=== PATIENT | female | born 1965 | race Caucasian/White ===

== ENCOUNTER 2023-11-13 07:10 | Observation (INO) ==
--- NOTE | 2023-10-23 10:00 | PAT Medication Instructions ---
Medication Instructions Date of Service October 23, 2023 Home Medications ascorbic acid (vitamin C) 500 mg tablet (Vitamin C) 500 mg PO DAILY calcium 600 mg capsule 1,200 mg PO DAILY cholecalciferol (vitamin D3) 25 mcg (1,000 unit) tablet (Vitamin D3) 25 mcg PO DAILY magnesium 250 mg tablet 250 mg PO HS multivitamin 1 cap PO DAILY sertraline 100 mg tablet (Zoloft) 100 mg PO QPM DO NOT take the morning of surgery ascorbic acid (vitamin C) 500 mg tablet (Vitamin C) 500 mg PO DAILY calcium 600 mg capsule 1,200 mg PO DAILY cholecalciferol (vitamin D3) 25 mcg (1,000 unit) tablet (Vitamin D3) 25 mcg PO DAILY magnesium 250 mg tablet 250 mg PO HS multivitamin 1 cap PO DAILY Take evening before surgery magnesium 250 mg tablet 250 mg PO HS sertraline 100 mg tablet (Zoloft) 100 mg PO QPM Other Notes If you have any questions please call us at [phone] or [phone] or [phone] or [phone]
--- NOTE | 2023-11-04 14:15 | Anesthesiology Consultation ---
Date of Service November 04, 2023 Assessment & Plan (1) Encounter for pre-operative examination: - Infectious disease screening: Per assessment on 11/04/23: Had Covid positive exposure 10/11/23 (home test 10/13/23 negative). No subsequent known infectious disease contacts or current infectious disease symptoms. No noted recent Covid positive test result. - Outpatient joint pathway: Per OR booking comments, plan for outpatient joint program. Patient seen at [facility] 11/04/23. Patient motivated. Strong post-op home support. Patient is an acceptable candidate to proceed as planned outpatient joint pathway pending perioperative course. Surgeon's office arranging post-op home management. - Patient acceptable risk for surgery pending surgeon-ordered PCP clearance ([facility], appt 11/07). Chart Review Chart Review: Patient seen in Pre Admission Testing Teaching & Discussion Pre-Anesthesia Teaching/Discussion Notes: Instructed NPO after midnight before surgery,except medications with 15 cc of water. Medication instructions provided according to the [facility] guidelines. History Surgery Operation Date: 11/13/23 10:50 Proposed Procedures p OP: Right Total Knee Arthroplasty - Lukas Main MD Height/Weight Height: 5 ft 3.5 in Weight: 66.1 kg Allergies Allergy/AdvReac Type Severity Reaction Status Date / Time Penicillins Allergy Unknown rash Verified 10/22/23 13:40 Medications Home Medications Medication Instructions Recorded Confirmed Last Taken ascorbic acid (vitamin C) 500 mg 500 mg PO DAILY 10/22/23 10/22/23 Unknown tablet (Vitamin C) calcium 600 mg capsule 1,200 mg PO DAILY 10/22/23 10/22/23 Unknown cholecalciferol (vitamin D3) 25 25 mcg PO DAILY 10/22/23 10/22/23 Unknown mcg (1,000 unit) tablet (Vitamin D3) magnesium 250 mg tablet 250 mg PO HS 10/22/23 10/22/23 Unknown multivitamin 1 cap PO DAILY 10/22/23 10/22/23 Unknown sertraline 100 mg tablet (Zoloft) 100 mg PO QPM 10/22/23 10/22/23 Unknown Past Medical History Medical History Acid reflux Mild, occasional History of depression Anxiety Exercise / Class Metabolic Activity II 4-5 Yardwork/Stairs/Walk up hill (one FS (no CP, no SOB)) Past Surgical History Surgical History Nausea and vomiting after administration of anesthetic agent nausea after general anesthesia History of surgery left high tibial osteotomy History of shoulder surgery right History of appendectomy History of colonoscopy Past Anesthesia History No Hx of Anesthesia Complications and No Family Hx of Anesthesia Complications History of PONV History of PONV (nausea after general anesthesia) and Hx of Motion Sickness (Situational) Social History Smoking Status: Never smoker Do You Dip or Chew Tobacco: No Alcohol type: beer, wine and hard liquor alcohol intake frequency: a few times a month (6x per month) Hx Substance Use: No substance use type: does not use Review of Systems Patient denies chest pain, shortness of breath, dyspnea on exertion, fever, chills, cough, wheezing, palpitations. Physical Exam Vital Signs VITALS BP 103/61 P 65 TEMP 98.8 SP02 95%RA RESP 16 PHYSICAL Full cervical extension range of motion. Full TMJ range of motion. TMD 3 finger breaths Mallampati Score 2 Dentition: intact Lungs: clear throughout to auscultation Cardiac: regular rate and rhythm, no murmurs noted Spine: normal Carotid arteries: negative bruit Extremities: no LE edema Lab Results Anesthesia Preop Results Results Anesthesia Widget: WBC 6.40 K/ul (4.8-10.8) 11/04/23 Hgb 12.8 g/dl (12.0-16.0) 11/04/23 Hct 38.0 % (37.0-47.0) 11/04/23 Plt 278 K/uL (130-400) 11/04/23 Na 142 mmol/L (136-145) 11/04/23 K 3.8 mmol/L (3.5-5.1) 11/04/23 Cl 108 mmol/L (98-107) H 11/04/23 CO2 27 mmol/L (21-32) 11/04/23 BUN 18 mg/dl (6-23) 11/04/23 Creat 0.59 mg/dl (0.6-1.2) L 11/04/23 Glucose Level 81 mg/dl (70-99(Fasting)) 11/04/23 PT 10.5 Seconds (9.0-12.0) 11/04/23 PTT 25 Seconds (21-31) 11/04/23 INR 1.0 (0.9-1.1) 11/04/23 Urine Color Yellow 11/04/23 Urine Appearance Clear (Clear) 11/04/23 Urine pH 5.0 (4.5-7.5) 11/04/23 Urine Specific Pep 1.023 (1.000-1.030) 11/04/23 Urine Protein Negative (Negative) 11/04/23 Urine Glucose (UA) Negative (Negative) 11/04/23 Urine Ketones Trace (Negative) H 11/04/23 Urine Blood Negative (Negative) 11/04/23 Urine Nitrite Negative (Negative) 11/04/23 Urine Bilirubin Negative (Negative) 11/04/23 Urine Urobilinogen Negative (Negative) 11/04/23 Urine Leukocyte Esterase Negative (Negative) 11/04/23 Blood Type O Positive 11/04/23 Antibody Screen NEGATIVE 11/04/23 Testing Electrocardiogram Date: 11/04/23 NSR at 62bpm. "Normal ECG"
--- NOTE | 2023-11-05 15:12 | History & Physical Report ---
Date of Service November 05, 2023 Assessment & Plan (1) Osteoarthritis of right knee: Plan: PRE-OP Diagnosis: Right knee osteoarthritis Planned Procedure: Right total knee arthroplasty (outpatient) Plan: Patient is scheduled to undergo this procedure at the [facility] following the outpatient joint pathway on , November 13, [address] Main. Risks and complications of the procedure such as: Infection, bleeding, pain, scarring, nerve blood vessel damage, weakness, wound problems, stiffness, incomplete relief of symptoms, hardware failure, hardware loosening, wear, fracture, tendon or ligament injury, blood clots, embolism, heart attack, stroke and were explained to the patient and her visit today. Informed consent form procedure was obtained. Patient also understands risks of proceeding with surgical invention during the COVID-19 pandemic. Currently she is asymptomatic and has not been in contact with anyone positive for the virus recently. Patient states she has a preop medical clearance appointment scheduled with her primary care provider Dr. Ramey on November 07 at noon. Patient states she is scheduled to meet anesthesia later this afternoon. While there she will obtain a CBC with differential, complete metabolic panel, PT/INR, blood type and screen, urinalysis, urine culture and sensitivity, EKG, and a nasal culture for MRSA. During today's visit we reviewed the total knee packet. I answered all questions that the patient had in regards to her surgery. I provided her with paperwork to obtain a handicap placard for her vehicle. Patient will need a walker, raised toilet seat and shower chair prior to surgery. I discussed antibiotic use following joint replacement surgery before dental procedures. We talked about joint venture classes offered by [facility] that are done via [employer]. We discussed the outpatient joint pathway and how it works. During today's visit the PDMP was checked and no red flags were raised that would prevent us from prescribing the patient an opioid analgesic for postoperative pain control. Prescriptions for oxycodone, diclofenac sodium, Zofran and cephalexin were sent to the patient's pharmacy for to use following surgery. I also discussed with the patient that she will be on a baby aspirin twice daily for the first 30 days postoperatively for blood clot prevention. Patient plans on doing in-home physical therapy for the first 2 weeks postoperatively. I will provide this order to our nurse liability claims manager and have this service set up. Patient states that she is most likely going to do outpatient physical therapy at [facility]. She is scheduled to see me for 2-week postoperative follow-up on November 26. If she has questions or concerns that should arise prior to her surgery, she will contact the clinic. This chart was completed utilizing [employer] voice recognition software. Grammatical errors, random word insertions, pronoun errors, and in complete sentences are an occasional consequence of the system. Any questions or concerns about the content, text, or information contained within the body of this dictation should be addressed directly to the physician for clarification. History of Present Illness Chief Complaint: Chief Complaint: Right knee pain Primary Care Provider: Jaden Meyers DO History of Present Illness (including history relevant to procedure): This 58-year-old female presents to the clinic today for her preoperative history and physical. Patient complains of a 5-year history of medial sided knee pain that is failed conservative management with corticosteroid injections, viscosupplementation injections, the use of oral nonsteroidal agents and extensive physical therapy. Patient states that over the past 6 months her pain has increased with occasional swelling, locking, clicking and radiation of the pain to the posterior medial aspect of the knee. It is now starting to affect things that she likes that he will our regular basis and makes it difficult to navigate stairs or walk up or down hill. She is elected proceed with surgical intervention at this time. Review Of Systems: A 12 point review of systems is performed is unremarkable except for those things stated in the HPI and past medical history. Past Medical History: Problems: OA (osteoarthritis) of knee History of operative procedure on shoulder Impingement syndrome of shoulder region Pain in upper limb Procedure History Procedure Procedure Date Comments Arthroscopy of shoulder with biceps tenodesis Shoulder repair 2013 Osteotomy of tibia 2012 Appendectomy 1980 Allergies and Sensitivities: penicillins Current Home Meds: (Last Updated 11/04 13:30) ascorbic acid (Vitamin C) calcium citrate PO bid cephalexin (cephalexin 500 mg oral capsule) 500 mg PO tid Post op infection prophylaxis diclofenac (diclofenac sodium 75 mg oral delayed release tablet) 75 mg PO bid PRN: as needed for pain with food magnesium aspartate ondansetron (Zofran 4 mg oral tablet) 4 mg PO q8h Post op nausea/vomiting oxyCODONE (oxyCODONE 5 mg oral tablet) 5 mg PO q4h PRN: as needed for pain post op pain controlOngoing Tx sertraline (Zoloft 100 mg oral tablet) 100 mg PO Daily sodium hyaluronate (Euflexxa 10 mg/mL intra-articular solution) 20 mg intra- articular q7days mail to dr kramer Initial Wt: 11/04 65.0 kg 143 lb Allergies Allergy/AdvReac Type Severity Reaction Status Date / Time Penicillins Allergy Unknown rash Verified 10/22/23 13:40 Home Medications Medication Instructions Recorded Confirmed Type ascorbic acid (vitamin C) 500 mg 500 mg PO DAILY 10/22/23 10/22/23 History tablet (Vitamin C) calcium 600 mg capsule 1,200 mg PO DAILY 10/22/23 10/22/23 History cholecalciferol (vitamin D3) 25 25 mcg PO DAILY 10/22/23 10/22/23 History mcg (1,000 unit) tablet (Vitamin D3) magnesium 250 mg tablet 250 mg PO HS 10/22/23 10/22/23 History multivitamin 1 cap PO DAILY 10/22/23 10/22/23 History sertraline 100 mg tablet (Zoloft) 100 mg PO QPM 10/22/23 10/22/23 History Past Med/Surg History Medical History Acid reflux Mild, occasional History of depression Anxiety Surgical History Nausea and vomiting after administration of anesthetic agent nausea after general anesthesia History of surgery left high tibial osteotomy History of shoulder surgery right History of appendectomy History of colonoscopy Social History Smoking Status: Never smoker Second Hand Exposure: No; Do You Dip or Chew Tobacco: No; Hx Substance Use: No Preferred Language: Albanian Communication Ability: Effective Unit Clerk Required: No Beliefs That Will Affect Care: None Current Living Situation: Spouse and Family Feels Safe at Home: Yes Assistive Devices: None Review of Systems All systems reviewed & are unremarkable except as noted in Subjective Physical Exam Physical Exam: Physical Exam: (relevant to the procedure, including heart and lung evaluation) General: Alert and oriented x 3 with proper grooming and hygiene Eyes: Pupils are equal and reactive to light with accommodation. Extraocular movements intact Throat: Posterior oropharynx is clear with absence of edema, erythema or exudate. Dentition is appropriate Cardiac: Regular rate and rhythm with no murmurs or gallops appreciated Lungs: Clear to auscultation throughout with no wheezing, rales or rhonchi Abdomen: Nonobese, nondistended, nontender with NABS Extremities: Right knee: Range of motion is from 0 degrees of extension to 125 degrees of flexion. Patient experiences medial joint line tenderness with the knee is palpated in the flexed position. She also experiences discomfort with manipulation of her patella. Patient has slight visible valgus malalignment of the knee. She has no significant laxity with varus or valgus stressing. AP drawer sign and Hanh test are negative. Patient is neurovascularly intact in the right lower extremity. Neuro: Cranial nerves II through XII are intact no motor or sensory deficit Skin: Normal in appearance with no open skin areas or discharge Results & Data Diagnostic Findings Studies (relevant to the procedure): X-ray imagin views of the right knee obtained show evidence of left knee high tibial osteotomy that is healed and well-maintained joint space. Right knee shows lateral patellofemoral joint space narrowing with tricompartmental osteophyte formation. Alignment films done in 02/2022 reviewed show Varus mal alignment of the right knee.
[~2023-11-13 07:10] MED LIST: ACETAMINOPHEN 500 MG TAB PO SCH; BUPIVACAINE 0.5 % 5 MG/1 ML PF 10ML VIAL ONE; CeleBREX 200 MG CAP PO SCH; FAMOTIDINE 20 MG TAB PO SCH; LR 500ML BOLUS, THEN 15ML/HR IV SCH; LR 60ML/HR IV SCH; MEPIVACAINE HCL 1.5% 30 ML VIAL ONE; ROPIVACAINE 0.5% 5 MG/ML 30 ML VIAL ONE; ROPIVACAINE 0.5% HCL/PF 150 MG, BUPIVACAINE 0.75% MPF 20 ML, EPINEPHrine 0.15 MG, Ketor... INFIL SCH; ROPIVACAINE 0.5% HCL/PF 246 MG, Ketorolac (*for OR use only*) 30 MG, EPINEPHrine 30MG/3... INFIL SCH; Scopolamine 1 MG TDSY TD SCH; TRANEXAMIC ACID 1,000 MG **IV Intra-op IV SCH; TRANEXAMIC ACID 1,000 MG **IV Pre-op IV SCH; ceFAZolin 2000MG 2,000 MG/15 ML SYR IV SCH; dexAMETHasone**PF** 10 MG/ML VIAL IV SCH; traMADol HCL 50 MG TABLET PO SCH
[2023-11-13] MEDS ORDERED: fentaNYL citrate PF 100 MCG/2 ML VIAL ONE (07:25)
[2023-11-13] MEDS ORDERED: PROPOFOL IV EMULSION 10 MG/ML 20 ML VIAL IV ONE (07:25)
[2023-11-13] MEDS ORDERED: MIDAZOLAM HCL 1 MG/ML 2ML VIAL ONE (07:25)
--- OUTSIDE RECORDS SUMMARY | 2023-11-13 07:56 | External Medical Summary | Summary of Care ---
Author Name Unknown Organization [facility] Address [address] [place] [address] Phone [phone] Care Team Providers Care Windows Support Engineer Name Role Phone Jaden Meyers DO Primary Care Provider [phone] Reason for Visit * Reason Comments pre-op exam Encounter Details Date Type Department Care Team (Latest Contact Info) Description 11/07/2023 12:00 PM EST Office Visit Family Practice [facility] [address] [facility] [place] [address] Evon Verma PA-C [address] [facility] [place] [address] Preoperative general physical examination*; Primary osteoarthritis of one knee, right; Major depressive disorder, recurrent episode, moderate (HCC); Generalized anxiety disorder; Body mass index 26.0-26.9, adult Allergies Active Allergy Reactions Criticality Noted Date Comments Penicillins Rash 08/09/2013 documented as of this encounter (statuses as of 11/07/2023) Medications Medication Sig Dispensed Refills Start Date End Date Status Magnesium 250 MG TabletIndications: takes at night Take 1 Tablet by mouth in the morning. 0 Active vitamin c (ASCORBIC ACID) 500 MG Tablet Take 1 Tablet by mouth in the morning. 0 Active Calcium Carbonate 1250 (500 CA) MG CAPS Take by mouth. 0 Active Melatonin 10 MG Tablet Take 1 Tablet by mouth at bedtime. 0 Active Cephalexin 500 MG Oral Capsule (Keflex) 0 11/04/2023 Active Diclofenac Sodium 75 MG Oral Tablet Delayed Release (Voltaren) 0 11/04/2023 Active Ondansetron HCl 4 MG Oral Tablet (Zofran) TAKE ONE TABLET BY MOUTH EVERY 8 HOURS FOR POST OP NAUSEA/VOMIT ING 0 11/04/2023 Active oxyCODONE HCl 5 MG Oral Tablet (Oxy IR) 0 11/04/2023 Active Sertraline HCl 100 MG Oral Tablet (Zoloft)Indication s:Major depressive disorder, recurrent episode, moderate (HCC),Generalized anxiety disorder TAKE ONE AND ONE-HALF TABLETS ONCE DAILY IN THE MORNING 135 Tablet 1 11/07/2023 Active COVID-19 mRNA Vacc (Moderna) 100 MCG/0.5ML Intramuscular Suspension (Spikevax) 0 10/12/2021 11/07/19 24 Discontinued Sertraline HCl 100 MG Oral Tablet (Zoloft)Indication s:Depression TAKE ONE AND ONE-HALF TABLETS ONCE DAILY IN THE MORNING 135 Tablet 1 10/09/2023 11/07/19 24 Discontinued(Ref ill) documented as of this encounter (statuses as of 11/07/2023) Active Problems Problem Noted Date Diagnosed Date Atypical squamous cells of u ndetermined significance (ASCUS) on Papanicolaou smear of cervix 11/07/2023 Dysfunctional uterine bleeding 11/07/2023 Major depressive disorder, recurrent episode, mo derate 12/08/2020 Generalized anxiety disorder 08/09/2013 documented as of this encounter (statuses as of 11/07/2023) Resolved Problems Problem Noted Date Diagnosed Date Resolved Date Abnormal mammogram 07/24/2017 8 Malaise and fatigue 07/09/2017 07/21/20 18 Rotator cuff tear 08/09/2013 11/07/2023 documented as of this encounter (statuses as of 11/07/2023) Immunizations Name Administration Dates Next Due COVID-19 mRNA, LNP-s, No Pre serve, 2-Dose Series (Moderna) 03/14/2021,02/14/2021 COVID-19, mRNA, LNP-s, PF, B ooster, 100mcg/0.5mg (Moderna) 10/12/2021 PPD 07/21/2018 Seasonal Influenza, PF, 6 M & above, IM , (FluLaval or Fluzone) 09/09/2023,08/18/2021,07/19/2020,08/05,07/21/2018,08/08/2017 Seasonal Influenza, Quadriva lent, No Preserve, IM 08/22/2016 08/22/2017 Seasonal Influenza, Split, I IV3, With Preserve, Inj 07/12/2015,08/06/2014,08/09/2013 TDAP (age 10 and older)(Boostrix) 03/10/2014 Zoster Vaccine Recombinant (Shingrix) 02/09/2020,11/08/2019 documented as of this encounter Social History Tobacco Use Types Packs/Day Years Used Date Smoking Tobacco: Never Smokeless Tobacco: Never Alcohol Use Standard Drinks/Week Comments Yes 0 (1 standard drink = 0.6 oz pur e alcohol) social AUDIT-C Answer Date Recorded Frequency of Alcohol Consumption Not on file 08/05/2019 Average Number of Drinks Not on file 019 Frequency of Binge Drinking Weekly 01/2019 PHQ-2 Answer Date Recorded PHQ Adult Total Score 0 06/19/2022 Hunger Vital Sign Answer Date Recorded Within the past 12 months, y ou worried that your food would run out before you got the money to buy more. Never true 10/28/20 23 Within the past 12 months, t he food you bought just didn't last and you didn't have money to get more. Never true 10/28/2023 Sex and Gender Information Value Date Recorded Sex Assigned at Female 08/04/2022 9:50 PM EDT Gender Identity Female 08/04/2022 9:50 PM EDT Sexual Orientation Straight 08/04/2022 9: 50 PM EDT Job Start Date Occupation Industry Not on file Not on file Not on file documented as of this encounter Last Filed Vital Signs Vital Sign Reading Time Taken Comments Blood Pressure 100/62 11/07/2023 11:58 AM EST Pulse 84 11/07/2023 11:58 AM EST Temperature 36.7 C (98 F) 11/07/2023 11:58 AM EST Respiratory Rate 16 11/07/2023 11:58 AM EST Oxygen Saturation 96% 11/07/2023 11:58 AM EST Inhaled Oxygen Concentration - - Weight 67.2 kg (148 lb 1.3 oz) 11/07/2023 11:58 AM EST Height 159.8 cm (5' 2.91") 11/07/2023 11:[address] Body Mass Index 26.31 11/07/2023 11:58 AM EST documented in this encounter Progress Notes * Evon Verma PA-C - 11/07/2023 12:14 PM EST Images from the original note were not included. Pre-Operative Medical Evaluation Procedure Information Type of Surgery: right knee replacement Referring Physician / Surgeon: Inglewoodjaime Esteban/Dr. Main Date of procedure: 11/13/2022 at [facility] Review of Systems: Constitutional ROS: No change in weight, No weakness, No fatigue, and No fevers, sweats, or chills Eye ROS: No recent significant change in vision, No eye pain, redness, discharge, No diplopia, No h/o cataracts, and No h/o glaucoma Ear ROS: No ear pain, No drainage, No tinnitus or vertigo, and No recent change in hearing Nose ROS: No history of frequent colds or sinusitis, No nasal stuffiness, No history of Hay Fever, and No significant epistaxis Mouth/Throat ROS: No bleeding gums, No thrush, or No sore throat Neck ROS: No lumps or masses, No swollen glands, No recent swelling in thyroid area, No significantpain in neck, and No h/o goiter or thyroid disease Pulmonary ROS: No cough, sputum, or hemoptysis, No wheezing, No rales, No shortness of breath, and No recent change in breathing Cardiovascular ROS: No chest pain, No shortness of breath, No dyspnea on exertion, No orthopnea, Noparoxysmal nocturnal dyspnea, No edema, No palpitations, and No syncope Gastrointestinal ROS: No abdominal pain, No change in bowel habits, No significant heartburn, No significant change in appetite, No nausea, vomiting, diarrhea, or constipation, No hematemesis, No blood in stools or black tarry stools, No abdominal bloating or early satiety, and No dysphagia Genito-Urinary Female ROS: No STDs, No dysuria, No frequency, No incontinence, No irregular menstruation, No urgency, and No vaginal discharge Musculoskeletal/Extremities ROS: No pain, redness or swelling on the joints Skin/Integumentary ROS: No edema, No rash, and No itching Neurologic ROS: Normal balance, No headaches, No seizures, and No weakness Psychiatric ROS: No depression, No anxiety, and No psychosis Medical History Problem List: Atypical squamous cells of undetermined significance (ASCUS) on Papanicolaou smear of cervix (11/07/2023) Dysfunctional uterine bleeding (11/07/2023) Major depressive disorder, recurrent episode, moderate (HCC) (2020) Abnormal mammogram (07/24/2017) Malaise and fatigue (07/09/2017) Rotator cuff tear (08/09/2013) Generalized anxiety disorder (08/09/2013) Current Medications Cephalexin 500 MG Oral Capsule (Keflex), Ondansetron HCl 4 MG Oral Tablet (Zofran), TAKE ONE TABLET BY MOUTH EVERY 8 HOURS FOR POST OP NAUSEA/VOMITING oxyCODONE HCl 5 MG Oral Tablet (Oxy IR), Sertraline HCl 100 MG Oral Tablet (Zoloft), TAKE ONE AND ONE-HALF TABLETS ONCE DAILY IN THE MORNING Melatonin 10 MG Tablet, 10 mg, Oral, HS Calcium Carbonate 1250 (500 CA) MG CAPS, Take by mouth. Magnesium 250 MG Tablet, 250 mg, Oral, Daily(AM) vitamin c (ASCORBIC ACID) 500 MG Tablet, 500 mg, Oral, Daily(AM) Diclofenac Sodium 75 MG Oral Tablet Delayed Release (Voltaren), (Patient not taking: Reported on 11/07/2023) Allergies: Penicillins Past Medical History: has a past medical history of Anxiety (1999), Post depression (1999), and Rotator cuff tear (2011). Past Surgical History: has a past surgical history that includes knee fx, repair (03/2012); laparoscopy;appendectomy (at 15); colonoscopy (2010); lasik surgery; and Colonoscopy, Diagnostic (Rectum) (06/09/2020). Social History: reports that she has never smoked. She has never used smokeless tobacco. She reports current alcohol use. She reports that she does not use drugs. Family History: family history includes Allergies in her daughter and son; Cancer (age of onset: 70) in her father and mother; Diabetes in her mother; Eye Problems in her father; No Known Problems in her daughter. Anesthesia History Type of Anesthesia: General Endotracheal and Caudal block Anesthesia reaction: Yes, nausea and vomiting History of surgical complications: no Personal history of venous thromboembolic disease: no Physical Exam Vitals: 11/07/23 1158 Temp: 36.7 C (98 F) Pulse: 84 Resp: 16 SpO2: 96% BP: 100/62 BMI: 26.3 BP 100/62 | Pulse 84 | Temp 36.7 C (98 F) (Tympanic) | Resp 16 | Ht 1.598 m (5' 2.91") | Wt 67.2 kg (148 lb 1.3 oz) | LMP 04/17/2015 (Approximate) | SpO2 96% | BMI 26.31 kg/m | BSA 1.73 m General: alert, healthy, and no distress Head: Normocephalic, No masses, lesions, tenderness or abnormalities Eye Exam: PERRLA, extraocular movements intact, conjunctiva are pink and non- injected, sclera clear Ears: External ears normal, Canals clear, TM's Normal Nose: no mucosal erythema, no mucosal edema, no purulent discharge Oropharynx: no exudate, no erythema, lips, buccal mucosa, and tongue normal, and mucous membranes are moist Neck: supple, no adenopathy, no bruits, thyroid normal size, non-tender, without nodularity Heart: regular rate & rhythm, no murmur, and no gallops Lungs: chest symmetric with normal AP diameter, no chest deformities noted, no chest wall tenderness, lungs clear to auscultation Abdomen: abdomen soft, non-tender, normal bowel sounds, and no masses or organomegaly Extremities: less than 2 second capillary refill, no joint deformities, effusion, or inflammation Neuro Exam: alert & oriented x 3 with fluent speech, no focal motor/sensory deficits, gait normal, reflexes normal and symmetric Skin: skin color, texture, turgor are normal, no rashes or significant lesions Labs reviewed and are significant for: none EKG by my review is significant for: not available at time of exam Surgical Risk Scoring Revised Cardiac Risk Index (RCRI) High-risk type of surgery (examples include vascular and any open intraperitoneal or intrathoracic procedures): 0=No History of ischemic heart disease (history of myocardial infarction or positive exercise test, current compliant of chest pain considered to be secondary to myocardia ischemia, use of nitrate therapy, or ECG with pathological Q waves; do not count prior coronary revascularization procedure unless one of the other criteria for ischemic heart disease is present): 0=No History of heart failure: 0=No History of cerebrovascular disease: 0=No Diabetes mellitus requiring treatment with insulin: 0=No Preoperative serum creatinine >2.0 mg/dL (177 micromol/L): 0=No Pt has revised cardiac index score of: No Risk Factors- 0.4% (95% CI: 0.1-0.8) Screening for Obstructive Sleep Apnea (STOP-BANG) Do you Snore loudly? 1=Yes Do you often feel Tired, Fatigued, or Sleep? 0=No Has anyone Observed you Stop Breathing or Choking/Gasping during sleep? 0=No Do you have or are you being treated for High Blood Pressure? 0=No BMI over 35? 0=No Age older than 50? 1=Yes Neck size large? (For males - 17 inches or larger, For females - 16 inches or larger) 0=No Male? 0=No Score 0-2:low risk GENARO, 3-4: intermediate risk of GENARO, 5-8: high risk GENARO 1 Assessment and Plan Preoperative general physical examination Primary osteoarthritis of one knee, right Major depressive disorder, recurrent episode, moderate (HCC) -sertraline refilled for her today as requested - Sertraline HCl 100 MG Oral Tablet (Zoloft); TAKE ONE AND ONE-HALF TABLETS ONCE DAILY IN THE MORNING Generalized anxiety disorder - Sertraline HCl 100 MG Oral Tablet (Zoloft); TAKE ONE AND ONE-HALF TABLETS ONCE DAILY IN THE MORNING Body mass index 26.0-26.9, adult Functional Assessment They are able to walk up a flight of stairs, walk two blocks at a moderate pace, do heavy house work like vacuuming, and grocery shop. The patient's functional status is good (greater than 4 METS). 1 MET: 4 METs: 4-10 METs: Can take care of self, such as eat, dress or use the toilet. Can walk to block or go up a flight of steps. Can do heavy house work. Surgical Risk Assessment Patient is low medical risk for the listed procedure. Medication adjustments: None Additional consults or testing: None documented in this encounter Nursing Notes * Becac Kaufman LPN - 11/07/2023 11:56 AM EST Patient presents today for a pre op exam. She denies any concerns. documented in this encounter Plan of Treatment Scheduled Procedures Name Priority Associated Diagnoses Date/Ti me COLONOSCOPY FLEXIBLE PROXIMA L DIAGNOSTIC Recall Family history of colonic polyps Health Maintenance Due Date Last Done Comments HPV/Co-Test 1993 Depression Screening 06/19/2023 06/19/2022 COVID-19 Vaccine ( season) 2023 10/12/2021, 03/14/2021, 02/14/2021 Mammogram 11/25/2023 11/25/2022, 11/04, 11/02/2020, Additional history exists DTaP,Tdap,and Td Vaccines (2 - Td or Tdap) 03/10/2024 03/10/2014 COLONOSCOPY-EVERY 5 YRS AGES 18-100 06/09/2025 06/09/2020, 06/09/2020 Cervical Cancer Screening 06/19/2025 Pap Smear 06/19/2025 06/19/2022, 100 01/2019, 05/27/2016, Additional history exists Diabetes Screening 11/04/2026 11/04/2023, 0 07/12/2022, 08/05/2019, Additional history exists Lipid Panel 07/12/2027 07/12/2022, 10/0 01/2019, 03/15/2015, Additional history exists Zoster Vaccines Completed 02/09/2020, 11/08/2019 Influenza Vaccine (FLU shot) Completed 05/2023, 08/18/2021, 07/19/2020, Additional history exists GARDASIL-HPV IMMUNIZATION SERIES Aged Out No longer eligible based on patient's age to complete this topic Hepatitis B Aged Out No longer eligi ble based on patient's age to complete this topic MENINGOCOCCAL (MENACTRA/MENVEO) Aged Out No longer eligible based on patient's age to complete this topic Pneumococcal Vaccine: Pediatrics (0 to 5 Years) and At-Risk Patients (6 to 64 Years) Aged Out No longer eligible based on patient's age to complete this topic documented as of this encounter Medical Devices Not on filedocumented as of this encounter Visit Diagnoses Diagnosis Preoperative general physical examination- Primary Other specified pre-operative examination Primary osteoarthritis of one knee, right Major depressive disorder, recurrent episode, moderate (HCC) Major depressive disorder, recurrent episode, moderate Generalized anxiety disorder Body mass index 26.0-26.9, adult Body Mass Index 26.0-26.9, adult documented in this encounter Care Teams Windows Support Engineer Relationship Specialty Start Date End Date Jaden Meyers DO [address] [place] [address] PCP - General Family Medicine 08/09/13 documented as of this encounter
--- OUTSIDE RECORDS SUMMARY | 2023-11-13 07:57 | External Medical Summary | Continuity of Care Document ---
Author Name Unknown Organization [id number] Address [address] [place] [id number] Care Team Providers Care Motor And Generator Brush Cutter Name Role Phone MiraJaden Ghislaine Primary Care Physician [phone] [id number] Date(s): 11/04/23 - 11/04/23 [id number] [address] [place] [id number] Encounter Diagnosis Pre-op exam(Discharge Diagnosis) - 11/04/23 OA (osteoarthritis) of knee(Discharge Diagnosis) - 11/04/23 Discharge Disposition: Home or Self Care Attending Physician: THELMA Paul Dennis Referring Physician: MD Etelvina, Lukas Crystal Allergies, Adverse Reactions, Alerts Substance Reaction Severity Status penicillins Active Medications calcium citrate Start: 12/17/13 8:41:00, PO, bid Start Date: 12/17/13 Status: Ordered cephalexin 500 mg oral capsule Start: 11/04/23 13:22:00 EST, 1 cap, PO, tid, Disp# 15 cap, Post op infection prophylaxis, Pharmacy: [id number] Start Date: 11/04/23 Stop Date: 11/09/23 Status: Ordered diclofenac sodium 75 mg oral delayed release tablet Start: 11/04/23 13:22:00 EST, 1 tab, PO, bid, Disp# 60 tab, Refills: 1, with food, PRN: as needed for pain, Pharmacy: [id number] Start Date: 11/04/23 Stop Date: 01/03/24 Status: Ordered Euflexxa 10 mg/mL intra-articular solution Start: 10/03/21 14:38:00 EST, 20 mg =, intra-articular, q7days, Disp# 6 mL, Refills: 0, mail to dr kramer, Note to Pharmacy: R knee OA [email or web address], Pharmacy: [facility] Start Date: 10/03/21 Stop Date: 10/24/21 Status: Ordered magnesium aspartate Start: 02/15/21 8:39:00 EDT Start Date: 02/15/21 Status: Ordered oxyCODONE 5 mg oral tablet Start: 11/04/23 13:21:00 EST, 1 tab, PO, q4h, Disp# 28 tab, Refills: 0, post op pain control Ongoing Tx, PRN: as needed for pain, Pharmacy: [facility] Start Date: 11/04/23 Status: Ordered Vitamin C Start: 12/17/13 8:41:00 Start Date: 12/17/13 Status: Ordered Zofran 4 mg oral tablet Start: 11/04/23 13:22:00 EST, 1 tab, PO, q8h, Disp# 14 tab, Post op nausea/vomiting, Pharmacy: [id number] Start Date: 11/04/23 Status: Ordered Zoloft 100 mg oral tablet Start: 08/16/13 13:05:00, 1 tab, PO, Daily Start Date: 08/16/13 Status: Ordered Mental Status 11/04/23 Barriers to Learning one year None evide nt Mandatory Health Literacy Documentation Yes Health Literacy Communication Barriers N ever Primary Language Welsh Problem List Condition Confirmation Course Effective Dates Status Health St atus Informant History of operative procedure on shoulder Confirmed Active Impingement syndrome of shoulder region Confirmed Active OA (osteoarthritis) of knee Confirmed Active Pain in upper limb Confirmed Active Diagnosis Diagnosis Type Effective Dates Health Status Cl inical Service Informant Pre-op exam Discharge Diagnosis 11/04/23 OA (osteoarthritis) of knee Discharge Diagnosis 11/04/23 Procedures Procedure Date Related Diagnosis Body Site Status Shoulder repair 2012 Completed Osteotomy of tibia 2011 Comple jackelin Appendectomy 1979 Completed Arthroscopy of shoulder with biceps tenodesis Completed Vital Signs Most recent to oldest [Reference Range]: 1 Height 162 cm (11/04/23 1:00 PM) Patient Weight 65 kg (11/04/23 1:00 PM) Body Mass Index 24.77 kg/m2 (11/04/23 1:00 PM) Temperature [36.5-37.9 DegC] 36.4 DegC *LOW* (11/04/23 1:00 PM) Heart Rate 68 bpm (11/04/23 1:00 PM) Blood Pressure 110/60mmHg (11/04/23 1:00 PM) Cuff Pulse Pressure 50 mmHg (11/04/23 1:00 PM) Social History Social History Type Response Smoking Status Never smoked cigaret panchito Sex Female Patient Care team information Care Team Personnel Name: DO Meyers Shane D Position: Referring DIRECT Member Role: Primary Care Provider Address: Address: [address] [place] [address], [place] [address] [place] Care Team Related Persons Name: FUAD WESTON Address: home [address] [facility] [place], [place] [id number] Name: FUAD WESTON Address: [facility] Address: home [address] [facility] [place] [place], [place] [id number]
--- OUTSIDE RECORDS SUMMARY | 2023-11-13 07:57 | External Medical Summary | Summary of Care ---
Author Name Unknown Organization [facility] Address [address] [place] [address] Phone [phone] Care Team Providers Care Commercial Property Manager Name Role Phone Jaden Meyers DO Primary Care Provider [phone] Encounter Details Date Type Department Care Team (Late st Contact Info) Description 11/06/2023 Orders Only Family Practice [facility] [address] [facility] [place] [phone] Jaden Meyers DO [address] [place] [address] Allergies Active Allergy Reactions Criticality Noted Date Comments Penicillins Rash 08/09/2013 documented as of this encounter (statuses as of 11/06/2023) Medications Medication Sig Dispensed Refills Start Date End Date Status Magnesium 250 MG TabletIndications:take s at night Take 250 mg by mouth daily. Indications: takes at night 0 Active vitamin c (ASCORBIC ACID) 500 MG Tablet Take 500 mg by mouth daily. 0 Active Calcium Carbonate 1250 (500 CA) MG CAPS Take by mouth. 0 Acti ve Melatonin 10 MG Tablet Take 10 mg by mouth at bedtime. 0 Active COVID-19 mRNA Vacc (Moderna) 100 MCG/0.5ML Intramuscular Suspension (Spikevax) 0 10/12/2021 Act cathy Sertraline HCl 100 MG Oral Tablet (Zoloft)Indications:De pression TAKE ONE AND ONE-HALF TABLETS ONCE DAILY IN THE MORNING 135 Tablet 1 10/09/2023 Active documented as of this encounter (statuses as of 11/06/2023) Active Problems Problem Noted Date Diagnosed Date Major depressive disorder, recurrent episode, mo derate 12/08/2020 Rotator cuff tear 08/09/2013 Generalized anxiety disorder 08/09/2013 documented as of this encounter (statuses as of 11/06/2023) Resolved Problems Problem Noted Date Diagnosed Date Resolved Date Abnormal mammogram 07/24/2017 8 Malaise and fatigue 07/09/2017 07/21/20 18 documented as of this encounter (statuses as of 11/06/2023) Immunizations Name Administration Dates Next Due COVID-19 [...] on file documented as of this encounter Plan of Treatment Upcoming Encounters Date Type Department Care Team (Late st Contact Info) Description 11/07/2023 12:00 PM EST Office Visit Family Practice [facility] [place] [address] [facility] [place] [address] Evon Verma PA-C [address] [facility] [place] [address] Scheduled Procedures Name Priority Associated Diagnoses Date/Ti [...] Cancer Screening 06/19/2025 Pap Smear 06/19/2025 06/19/2022, 01/2019, 05/27/2016, Additional history exists Diabetes Screening 11/04/2026 11/04/2023, 0 07/12/2022, 08/05/2019, Additional history exists Lipid Panel 07/12/2027 07/12/2022, 100 01/2019, 03/15/2015, Additional history exists Zoster Vaccines Completed 02/09/2020, 11/08/2019 Influenza Vaccine (FLU shot) Completed 05/2023, 10/05/2022, 08/18/2021, Additional history exists GARDASIL-HPV IMMUNIZATION SERIES Aged [...] Not on filedocumented as of this encounter Procedures Procedure Name Priority Date/Time Associated Diagnosis Comments CHEMISTRY-OUTSIDE Routine 11/04/2023 documented in this encounter Results * (ABNORMAL) CHEMISTRY-OUTSIDE (11/04/2023) Not all results display below - see scan for full detail OUTSIDE LAB (SEE SCANNED REPORT) Comment:SEE SCAN - CMP, PTIN R, CBCD, UA CREATININE-OUTSID E LAB 0.59(A) 0.6 - 1.2 MG/DL OUTSIDE LAB (SEE SCANNED REPORT) EGFR-OUTSIDE LAB 99.6 ML/MIN OUT SIDE LAB (SEE SCANNED REPORT) POTASSIUM-OUTSIDE LAB 3.8 3.5 - 5.1 MMOL/L OUTSIDE LAB (SEE SCANNED REPORT) GLUCOSE-OUTSIDE LAB 81 70 - 99 MG/DL OUTSIDE LAB (SEE SCANNED REPORT) HOURS FASTING OUTSID E LAB (SEE SCANNED REPORT) TRIGLYCERIDES-OUT SIDE LAB OUTSIDE LAB (SEE SCANNED REPORT) CHOLESTEROL-OUTSI DE LAB OUTSIDE LAB (SEE SCANNED REPORT) HDL-OUTSIDE LAB OUTS [facility] LAB (SEE SCANNED REPORT) CHOL/HDL RATIO-OUTSIDE LAB OUTSIDE LA B (SEE SCANNED REPORT) LDL (CALCULATED)-OUTS [facility] LAB OUTSIDE LAB (SEE SCANNED REPORT) LDL (DIRECT MEASURE)-OUTSIDE LAB OUTSIDE LAB (SEE SCANNED REPORT) HEMOGLOBIN, H1F-PWPPVDC LAB OUTSIDE LAB (SEE SCANNED REPORT) PHOSPHORUS-OUTSID E LAB OUTSIDE LAB (SEE SCANNED REPORT) PTH-OUTSIDE LAB OUTS [facility] LAB (SEE SCANNED REPORT) MICROALBUMIN RATIO-OUTSIDE LAB OUTSIDE LA B (SEE SCANNED REPORT) PROTEIN, UA-OUTSIDE LAB OUTSIDE LAB (SEE SCANNED REPORT) HEMOGLOBIN-OUTSID E LAB 12.8 12.0 - 16.0 G/DL OUTSIDE LAB (SEE SCANNED REPORT) 11/04/2023 Lukas Main MD LABORATORY OUTSIDE LAB (SEE SCANNED REPORT) documented in this encounter Care Teams Commercial Property Manager Relationship Specialty Start Date End Date Jaden Meyers DO [address] [place] [address] [place] [address] PCP - General Family Medicine 08/09/13 documented as of this encounter
--- OUTSIDE RECORDS SUMMARY | 2023-11-13 07:57 | External Medical Summary | Summary of Care ---
Author Name Unknown Organization [facility] Address [address] [place] [address] Phone [phone] Care Team Providers Care Machine Pack Assembler Name Role Phone Jaden Meyers DO Primary Care Provider [phone] Encounter Details Date Type Department Care Team (Late st Contact Info) Description 11/04/2023 Result Scan Unspecified Department <No scans attached> Allergies Active Allergy Reactions Criticality Noted Date [...] 12:00 PM EST Office Visit Family Practice [employer] [address] [place] [address] Evon Verma PA-C [address] [facility] [place] [address] Scheduled Procedures Name Priority Associated Diagnoses Date/Ti [...] Cancer Screening 06/19/2025 Pap Smear 06/19/2025 06/19/2022, 1001/2019, 05/27/2016, Additional history exists Diabetes Screening 11/04/2026 [...] Procedure Name Priority Date/Time Associated Diagnosis Comments EKG SCANNED RESULT 11/04/2023 documented in this encounter Results * EKG SCANNED RESULT (11/04/2023) 11/04/2023 No Physician Data Unknown EKG documented in this encounter Care Teams Machine Pack Assembler Relationship Specialty Start Date End Date Jaden Meyers DO [address] [place] [address] PCP - General Family Medicine 08/09/13 documented as of this encounter
--- NOTE | 2023-11-13 08:41 | History & Physical Bridge Note ---
Date of Service November 13, 2023 History & Physical Bridge Note I have examined the patient, reviewed the History & Physical and in the interval since the performance of the History & Physical I have noted the following changes of clinical significance: no changes noted
[2023-11-13] MEDS ORDERED: ATROPINE SULFATE 0.1 MG/ML 10ML SYR IV PRN (08:52)
[2023-11-13] MEDS ORDERED: ePHEDrine sulfate 50 MG/ML AMP IV PRN (08:52)
[2023-11-13] MEDS ORDERED: fentaNYL citrate PF 100 MCG/2 ML VIAL IV PRN (08:52)
[2023-11-13] MEDS ORDERED: ONDANSETRON INJ 2 MG/ML 2 ML VIAL IV PRN ×2 (08:52→16:37)
[2023-11-13] MEDS ORDERED: ORTHO JOINT ANESTHETIC ONE (08:54)
[2023-11-13] MEDS ORDERED: GLYCOPYRROLATE 0.2 MG/ML VIAL ONE (09:27)
--- NOTE | 2023-11-13 10:58 | Operative Report ---
Post Operative Report Pre & Post Diagnosis Operation Date: 11/13/23 08:50 Pre-Op Diagnosis: Right Knee Osteoarthritis Post-Op Diagnosis: Right Knee Osteoarthritis I identified the patient and participated in the time-out.: Yes Procedure Operation Date: 11/13/23 08:50 Actual Procedures p Right Total Knee Arthroplasty(Right) - Lukas Main MD Surgeon Lukas Main MD Director [place] GABBY Paul PA-C. No resident or fellow was available to assist. Estimated Blood Loss 50 Findings Consistent with Post-Op Diagnosis Specimens Right knee bone and soft tissue contents. Anesthesia Type Spinal MAC Complications none Disposition Disposition: Recovery Room Indications 58-year-old female with right knee arthritis refractory to conservative management. X-rays demonstrate joint space narrowing, and marginal osteophytes. I do long discussion with her about the risks and benefits of surgery, alternatives to surgery, and expected outcomes. After reviewing all these she elected to proceed with surgery. All questions were answered. Informed consent was signed. Description of Procedure Patient was identified in the preoperative holding area where the surgical site, right knee, was marked. Spinal anesthetic was placed by anesthesia. Patient was brought back to the operating room, placed on the operating room table, and IV sedation was administered. A bump was placed underneath the ipsilateral hip. All bony prominences were padded. Perioperative antibiotics and tranexamic acid were administered. Exam under anesthesia was performed. This demonstrated range of motion arc from 0 to 130 degrees. Stable to varus and valgus at 0 and 30 degrees. The surgical site was prepped and draped in the normal sterile fashion. Prior to incision a multidisciplinary timeout was called. All in the room were in agreement. We began by exsanguinating the limb with an Esmarch bandage. Tourniquet was inflated to 250 mmHg. A 14 cm long incision was made over the anterior aspect of the knee. I dissected through the subcutaneous tissues to the level of the fascia. Full-thickness flaps were raised above the fascia. A median parapatellar arthrotomy was made. Half the fat pad was excised. A medial release was performed with Bovie electrocautery on the proximal tibia. Synovitis in the knee and suprapatellar pouch was removed. The patella was then everted and held with 2 towel clips. The thickness of the patella was measured at 23 mm. Patellar resection was performed. Caliper showed the patella thickness now to be 14 mm. A size 35 trial was placed and had a great fit. The 3 drill holes were placed then the trial button was placed. The patellar thickness was now 24 mm which I was very happy with. The patellar trial was then removed, and the knee was flexed up. Retractors were placed to protect the MCL and LCL. Osteophytes were removed from the femoral condyles and intercondylar notch. The ACL and PCL were excised. Intramedullary drill guide was drilled into the femur. Distal femoral cutting guide was placed set at 5 degrees of valgus to resect 10 mm off the distal femur. Distal femoral resection was made without difficulty. The tibia was then exposed. The lateral meniscus was sharply excised. The tibial cutting jig was positioned in line with the tibial shaft in the coronal plane and with 3 degrees of posterior slope in the sagittal plane to resect 5 mm off the more involved compartment. The jig was then pinned in position and the tibial cut was made. We then brought the knee into full extension. Lamina spreaders were placed. The medial meniscus was excised. The extension block was then placed for 6 mm thickness poly. This gave us full extension and excellent stability to varus and valgus stress. Next the extension block was removed, the knee was flexed up, collateral ligaments were protected, and the epicondylar axis and Whitesides line were marked out on the distal femoral cut. Femoral sizing guide was placed. Ex ternal rotation was set at 3 degrees so that the posterior cut would be parallel with the epicondylar axis and perpendicular with Whitesides line. The patient sized to a size 4 femur. 2 pins were then placed through the jig into the distal femur. The jig was removed and the appropriately sized 4-in-1 cutting jig was placed over the pins, then fixated to the bone using threaded, headed pins. We confirmed that we would not notch the femur with our anterior cut. Our 4 cuts were then made. The cutting jig was removed. The flexion block was then placed with the knee held at 90 degrees. There was excellent stability to varus and valgus at 90 degrees with no gapping medially or laterally. Next the box cutting jig was placed on the distal femur. The box cut was made and the femoral trial was impacted into position. Lug holes were drilled in the distal femur. We then reexposed the tibia. The tibia was sized to a 4 for a fixed-bearing component. The tibial tray with a 6 mm thickness polyethylene liner was placed on the cut tibial surface and the knee was brought through a full range of motion. There was excellent stability to varus valgus stress throughout a full range of motion, which was approximately 0-130 degrees. Bovie electrocautery was used to jose the tibia at the site where the tibial tray rested in full extension. We then flexed up the knee, removed the polyethylene liner, and pinned the tibial tray into position to match the cautery jose. The intramedullary drill followed by the keel punch were used to prepare the tibia. Next the trial components were removed. I then injected the posterior capsule and periosteum with the periarticular injection cocktail. The bone cuts were then irrigated and dried while the cement was mixed on the back table. The femoral component was cemented on first. Excess cement was removed. A lap sponge was placed over the femoral component for protection, then the tibia was subluxated anteriorly. The all polyethylene tibial component was then cemented in place. Again excess cement was removed. The knee was brought into full extension and held there until the cement cured. The patella was cemented and clamped. Dilute Betadine solution was then allowed to soak in the knee while the cement cured. Once the cement was fully cured, the knee was irrigated out, the tourniquet was let down and meticulous hemostasis was ensured. The knee was brought through a full range of motion. I was were very happy with the patella tracking and the stability. We then began to close. Interrupted 0 Vicryl suture was used to repair the patellar retinaculum in [id number] fashion. The quadriceps and patellar tendons were run with #1 Vicryl. The deep dermal layer was closed with interrupted 2-0 Vicryl. Dermabond and Zipline was used for the skin, followed by a Silverlon dressing. A compressive Binh wrap was placed and the knee was placed into a knee immobilizer. Patient's sedation was lifted and was transferred to recovery room in stable condition. Summary of implants: Depuy Attune Posterior Stabilized Cemented Femur, size 4 right Attune All-polyethylene tibial component, posterior stabilized 6 mm thickness, size 4 Attune patella medialized dome, size 35 2 batches of simplex high viscosity bone cement Postoperative course: Patient will be discharged home after passing the outpatient joint pathway safety checklist. Weightbearing as tolerated with a walker with no knee range of motion for 48 hours. Aspirin for DVT prophylaxis. I attest to the content of the Intraoperative Record and any orders documented therein. Any exceptions are noted below.
--- NOTE | 2023-11-13 10:58 | Operative Report ---
Post Operative Report Pre & Post Diagnosis Operation Date: 11/13/23 08:50 Pre-Op Diagnosis: Right Knee Osteoarthritis Post-Op Diagnosis: Right Knee Osteoarthritis I identified the patient and participated in the time-out.: Yes Procedure Operation Date: 11/13/23 08:50 Actual Procedures p Right Total Knee Arthroplasty(Right) - Lukas Main MD Surgeon Lukas Main MD Poultry Hatchery Supervisor Ericka Paul PAEileen Estimated Blood Loss 50 Findings Consistent with Post-Op Diagnosis Specimens Right knee bone and soft tissue Description of Procedure I was present during the entire procedure assisting with positioning, prepping, draping, wound retraction, wound closure, dressing and immobilizer placement. No fellow present. Please see Dr. Main procedure note for specifics of the case. I attest to the content of the Intraoperative Record and any orders documented therein. Any exceptions are noted below.
--- NOTE | 2023-11-13 11:29 | Anesthesiology Progress Note ---
Date of Service November 13, 2023 Anesthesia Post Procedure Vital Signs Vital Signs: Temp Pulse Pulse Resp BP Pulse Ox O2 Del Method 11/13/23 11:20 97.0 F L 75 15 104/67 95 Room Air 11/13/23 11:15 78 15 108/65 95 Room Air 11/13/23 11:05 82 16 103/70 100 Oxymask 11/13/23 10:58 96.8 F L 80 16 97/67 L 100 Oxymask 11/13/23 07:51 98.6 F 68 18 106/64 96 Room Air O2 Flow Rate 11/13/23 11:20 11/13/23 11:15 11/13/23 11:05 5 11/13/23 10:58 5 11/13/23 07:51 Transfer of Care Handoff Completed per policy Notes Mental Status: alert / awake / arousable and participated in evaluation Patient Amnestic to Procedure: Yes Nausea / Vomiting: adequately controlled Pain: adequately controlled Airway Patency, RR, SpO2: stable & adequate BP & HR: stable & adequate Hydration State: stable & adequate Neuraxial Anesthesia: was administered and sensory block is resolving Anesthetic Complications: no major complications apparent and Pt Satisfied with anesthetic care
[2023-11-13] MEDS: oxyCODONE/ACETAMINOPHEN 5mg/325mg TAB PO PRN ×2 (12:10→21:53)
--- NOTE | 2023-11-13 12:12 | XRay Report ---
RIGHT KNEE 2 VIEWS History: Right total knee arthroplasty. Degenerative arthritis. Postop. FINDINGS: The patient is status post a right total knee arthroplasty. The hardware is intact. No frac ture or dislocation. IMPRESSION: Right total knee arthroplasty. No evidence for hardware complication. ACT 112: Negative or not required by law. Electronically signed by: Memo Orona M.D. 11/13/2023 12:11 PM
[2023-11-13] MEDS ORDERED: diphenhydrAMINE 50 MG/ML VIAL IV PRN (16:37)
[2023-11-13] MEDS ORDERED: ALUMINUM/MAGNESIUM SUSP 30 ML UDC PO PRN (16:37)
[2023-11-13] MEDS ORDERED: oxyCODONE/ACETAMINOPHEN 5mg/325mg TAB PO PRN (16:37)
[2023-11-13] MEDS ORDERED: SODIUM CHLORIDE 0.9% 1,000 ML IV SCH (16:45)
[2023-11-13] MEDS: Scopolamine CHECK PATCH PLACEMENT SCH (18:28)
[2023-11-13] MEDS ORDERED: SERTRALINE HCL 100 MG TABLET PO SCH (21:00)
[2023-11-13] MEDS: ASPIRIN 81 MG ECTAB PO SCH (21:53)
[2023-11-14] MEDS: Scopolamine CHECK PATCH PLACEMENT SCH ×2 (01:40→07:38)
[2023-11-14] MEDS: ASPIRIN 81 MG ECTAB PO SCH (08:15)
--- NOTE | 2023-11-14 09:25 | Orthopedic Progress Note ---
Date of Service November 14, 2023 Assessment & Plan (1) S/P total knee arthroplasty: Plan Weightbearing as tolerated with walker assistance and immobilizer for the first 48 hours PT/OT Ice with easy wrap Keep Silverlon dressing in place DVT prophylaxis with ALIRIO stockings and aspirin Pain control with p.o. medication Plan is to discharge home later this morning with in-home physical therapy for the first 2 weeks postoperatively Follow-up at [facility] orthopedics as previously scheduled With questions contact our clinic at [phone] Admission and Anticipated Discharge Date Admission Date: November 13, 2023 Subjective This 58-year-old female is day 1 status post right total knee arthroplasty. Patient was initially scheduled to be an outpatient total joint however she did not meet discharge criteria yesterday due to hypotension. She states she is doing much better this morning. She has been able to transition from her bed to the chair and from the chair to the restroom multiple times with the assistance of her walker. She is hoping to be discharged home later this morning. Currently she denies chest pain, shortness of breath, fever, chills, sweats, numbness or tingling in her right lower extremity. She states she does have some swelling noted around the knee with some ecchymosis to the lateral aspect. She states that her pain seems to be well-controlled with the medication she has been given. Review of Systems Review of Systems: All systems reviewed & are unremarkable except as noted in Subjective Physical Exam Physical Exam: Right knee: Her dressing was removed. Silverlon is clean dry and intact and left in place. Patient is able to perform an active straight leg raise test. She is able to actively dorsi and plantarflex her foot. Quad strength is 3+ out of 5. Active knee range of motion is from 0 degrees of extension to about 85 degrees of flexion. There is visible edema over the anterior aspect of the knee with ecchymosis to the lateral aspect. Patient's peripheral pulses are 2+. Her capillary fill is less than 2 seconds. She is neurovascularly intact in the right lower extremity. Results & Data Vital Signs (Past 12 Hours) Vital Signs Temp Pulse Resp BP Pulse Ox O2 Del Method 11/14/23 08:30 37.3 C 65 16 114/71 98 Room Air 11/14/23 03:53 37.1 C 52 L 16 102/64 97 Room Air 11/13/23 23:00 36.7 C 68 18 101/61 96 Room Air Diagnostic Findings Impressions Knee X-Ray 11/13/23 10:58 RIGHT KNEE 2 VIEWS History: Right total knee arthroplasty. Degenerative arthritis. Postop. FINDINGS: The patient is status post a right total knee arthroplasty. The hardware is intact. No fracture or dislocation. IMPRESSION: Right total knee arthroplasty. No evidence for hardware complication. ACT 112: Negative or not required by law. Electronically signed by: Memo Orona M.D. 11/13/2023 12:11 PM
--- NOTE | 2023-11-14 09:26 | Discharge Summary ---
Date of Service November 14, 2023 Admission HPI Per Admitting Provider History of Present Illness (including history relevant to procedure): This 58-year-old female presents to the clinic today for her preoperative history and physical. Patient complains of a 5-year history of medial sided knee pain that is failed conservative management with corticosteroid injections, viscosupplementation injections, the use of oral nonsteroidal agents and extensive physical therapy. Patient states that over the past 6 months her pain has increased with occasional swelling, locking, clicking and radiation of the pain to the posterior medial aspect of the knee. It is now starting to affect things that she likes that he will our regular basis and makes it difficult to navigate stairs or walk up or down hill. She is elected proceed with surgical intervention at this time. Review Of Systems: A 12 point review of systems is performed is unremarkable except for those things stated in the HPI and past medical history. Past Medical History: Problems: OA (osteoarthritis) of knee History of operative procedure on shoulder Impingement syndrome of shoulder region Pain in upper limb Procedure History Procedure Procedure Date Comments Arthroscopy of shoulder with biceps tenodesis Shoulder repair 2013 Osteotomy of tibia 2012 Appendectomy 1980 Allergies and Sensitivities: penicillins Current Home Meds: (Last Updated 11/04 13:30) ascorbic acid (Vitamin C) calcium citrate PO bid cephalexin (cephalexin 500 mg oral capsule) 500 mg PO tid Post op infection prophylaxis diclofenac (diclofenac sodium 75 mg oral delayed release tablet) 75 mg PO bid PRN: as needed for pain with food magnesium aspartate ondansetron (Zofran 4 mg oral tablet) 4 mg PO q8h Post op nausea/vomiting oxyCODONE (oxyCODONE 5 mg oral tablet) 5 mg PO q4h PRN: as needed for pain post op pain controlOngoing Tx sertraline (Zoloft 100 mg oral tablet) 100 mg PO Daily sodium hyaluronate (Euflexxa 10 mg/mL intra-articular solution) 20 mg intra- articular q7days mail to dr kramer Initial Wt: 11/04 65.0 kg 143 lb Admission Exam Per Admitting Provider Physical Exam: (relevant to the procedure, including heart and lung evaluation) General: Alert and oriented x 3 with proper grooming and hygiene Eyes: Pupils are equal and reactive to light with accommodation. Extraocular movements intact Throat: Posterior oropharynx is clear with absence of edema, erythema or exudate. Dentition is appropriate Cardiac: Regular rate and rhythm with no murmurs or gallops appreciated Lungs: Clear to auscultation throughout with no wheezing, rales or rhonchi Abdomen: Nonobese, nondistended, nontender with NABS Extremities: Right knee: Range of motion is from 0 degrees of extension to 125 degrees of flexion. Patient experiences medial joint line tenderness with the knee is palpated in the flexed position. She also experiences discomfort with manipulation of her patella. Patient has slight visible valgus malalignment of the knee. She has no significant laxity with varus or valgus stressing. AP drawer sign and Hanh test are negative. Patient is neurovascularly intact in the right lower extremity. Neuro: Cranial nerves II through XII are intact no motor or sensory deficit Skin: Normal in appearance with no open skin areas or discharge Principal Diagnosis Right knee osteoarthritis Discharge Exam Right knee: Her dressing was removed. Silverlon is clean dry and intact and left in place. Patient is able to perform an active straight leg raise test. She is able to actively dorsi and plantarflex her foot. Quad strength is 3+ out of 5. Active knee range of motion is from 0 degrees of extension to about 85 degrees of flexion. There is visible edema over the anterior aspect of the knee with ecchymosis to the lateral aspect. Patient's peripheral pulses are 2+. Her capillary fill is less than 2 seconds. She is neurovascularly intact in the right lower extremity. Discharge Data Allergies Allergy/AdvReac Type Severity Reaction Status Date / Time Penicillins Allergy Unknown rash Verified 11/13/23 07:47 Procedures Performed Operation Date: 11/13/23 08:50 Actual Procedures p Right Total Knee Arthroplasty(Right) - Lukas Main MD Ordered Studies 11/13/23 05:00 US - OR guided needle placemen Routine Hospital Course (1) S/P total knee arthroplasty: Plan Patient had an episode of hypotension and lightheadedness while planning for outpatient total joint discharge. Therefore, she did not meet criteria for discharge and was admitted with a 23-hour observation. She is doing much better this morning. Anticipate discharge later today with in-home physical therapy beginning over the weekend. Weightbearing as tolerated with walker assistance and immobilizer for the first 48 hours PT/OT Ice with easy wrap Keep Silverlon dressing in place DVT prophylaxis with ALIRIO stockings and aspirin Pain control with p.o. medication Plan is to discharge home later this morning with in-home physical therapy for the first 2 weeks postoperatively Follow-up at [facility] orthopedics as previously scheduled With questions contact our clinic at [phone] Total Time Total Time Spent Total Time Spent (In Minutes): 25 mins Discharge Plan Discharge Items Patient Disposition: Home - Home Health Services Reason For Visit: DID NOT MEET CRITERIA FOR OP TOTAL JOINT DISCHARGE Discharge Diagnosis: Right knee osteoarthritis Activity: As commented below Lifting: None Bathing: Keep incision dry Bathing Comment: May shower tomorrow Sexual Activity: Wait until after follow-up appointment Exercise/Sports: Wait until after follow-up appointment Weightbearing Comment: as tolerated with walker and immobilizer for first 48 hours post op Non-emergency contact: Surgeon Call non-emergency contact if: you have any medication questions, your pain is not controlled, your temperature is above 101.5, your wound has increased drainage and your wound pain has increased Follow-up/Referrals: [facility],Home Healthcare [Non-Staff] - (per office ) Jaden Meyers DO [Primary Care Provider] - Lukas Main MD [Physician] - Diet: Regular Addtl Attending Provider Instructions: Post-operative Instructions Dear Patient and Family/Friends, Before you are discharged from the hospital, it is important to know what to expect when you get home after surgery. To that end, we have created this sheet of discharge instructions which covers many commonly asked questions. Make sure you go through this sheet in its entirety with your nurse before you are discharged. Please note that we will go over the specifics of your surgery and recovery when you return for your first post-operative visit. Sincerely, Dr. Main Pain Expect to be in a fair amount of pain after surgery. Remember, our goal is not to eliminate your pain, but to make it tolerable. It is a good idea to stay ahead of your pain by taking the medications you were prescribed once you get home. Typically, the pain starts improving 3-7 days after surgery. You should start weaning off the narcotic pain medication (oxycodone, hydrocodone, hydromorphone, morphine) as soon as your pain improves. Please call our office if your pain is not adequately controlled. Ice Ice your operative site at least 5 times a day for 15-30 minutes at a time. Make sure you have a thin cloth between the ice or cooling unit and your skin to prevent diane bite. This is especially important if you received a nerve block. Continue icing your operative site for the first 5-7 days after surgery, then as needed. Diet/Nausea/Vomiting Start by drinking clear liquids and eating crackers. If you can tolerate this, then you may resume your normal diet. If you feel nauseated or vomit, take Zofran/ondansetron (if prescribed). Please call our office if you have intractable nausea or vomiting, or, if after hours, you may go to the Emergency Room for help. Constipation Constipation is a common side effect of narcotic pain medication. If you have not had a bowel movement within 2 days after surgery, we recommend purchasing an over the counter laxative such as Milk of Magnesia, Dulcolax, or Miralax from a local pharmacy, and taking it as instructed. Call our clinic if any questions. Slings and Braces If you were placed in a sling or brace, it must be worn at all times, including sleep. You may remove your sling or brace for physical therapy, home exercises, and showering. The length of time you will be in your brace and range of motion restrictions depends on what surgery you had; these details will be revi ewed at your first post-operative appointment. Nerve block The anesthesia team sometimes places a nerve block to help with post-operative pain control. This results in significant numbness and inability to move the extremity. The nerve block usually wears off in 8-12 hours, but sometimes can last up to 24 hours. Please call our office if you are still unable to move y our extremity after 24 hours, unless you received a pain pump to take home. Nerve blocks typically wear off quickly, so start taking pain medication as soon as you start feeling soreness near your surgical site. Weight bearing and Range of Motion. Do not bear any weight through your operative extremity immediately after surgery. If you had upper extremity surgery, do not lift anything with that arm. If you are in a knee brace, keep it locked in place until your follow-up. We will discuss your weight bearing, range of motion, and lifting restrictions in detail at your first post-operative appointment. Continuous Passive Motion (CPM) Machine If you were prescribed a CPM machine, it will start after your first post- operative appointment, at which time we will give you instructions on the range of motion settings and duration of treatment Physical therapy You will be given a prescription for physical therapy or occupational therapy at your first post-operative appointment. Typically, patients start therapy within 1 week of surgery Wound care and showering We will inspect your wound at your first post-operative visit, and may do a dressing change at that time. Most patients will be in a water-proof dressing that is removed 14 days after surgery. It is normal to see some dried blood on the dressing. Do not remove your dressing, paper strips or sutures yourself unless you are given permission. Showering is allowed the day after surgery. Do not scrub or remove any dressings. The wound should not be submerged underwater (i.e. in a bathtub or pool) until 4 weeks after surgery ALIRIO stockings If you were given white stockings, these are to be worn at all times except to shower (on both legs) for the first 2 weeks after surgery. Driving You may not drive while taking narcotic pain medication or while in a cast, spli nt, sling or brace. You, the patient, need to make the final determination about when you are safe to drive, however, the earliest you may consider driving after surgery is below: Hand/Wrist/Elbow Surgery: 3 days Shoulder Surgery: 2 weeks Hip,/Knee/Ankle Surgery: 4 weeks Fracture repair: 6 weeks Return to Work Your return to work depends on what surgery was done and what type of work you do. Please bring any paperwork your employer needs completed to your first post-operative visit. Also, bring a description of your job duties, as this helps us to understand what risks you may face at work. Travel Avoid long distance travel (greater than 1 hour) in airplanes and cars for the first 6 weeks after surgery. If you must travel, you need to have a Doppler ultrasound done before you travel to rule out a blood clot in your legs. Follow-up You should have a follow-up appointment already scheduled 1-2 days after surgery. If not, please contact our office to make this appointment before you leave the hospital. When to call the office It is normal to have swelling and bruising in the limb that was operated on. This will improve with time. It is also normal to have fevers for the first 2 days after surgery. Reasons you should call your doctor include: Uncontrolled pain; Nausea, vomiting, or constipation that does not improve with medication; Fevers over 101.5, chills, sweats; Drainage or bleeding from the wound; Foul odor; Spreading areas of redness; Any other concerns Pending Studies at Discharge: No Stand-Alone Forms: Anesthesia/Sedation, Adult, My [facility] Medications and DC Order Prescriptions: Continued calcium 600 mg Capsule 1,200 mg PO DAILY Patient Comments: time varies, when i remember sertraline [Zoloft] 100 mg Tablet 100 mg PO QPM ascorbic acid (vitamin C) [Vitamin C] 500 mg Tablet 500 mg PO DAILY Patient Comments: time varies, when i remember. multivitamin Capsule 1 cap PO DAILY Patient Comments: time varies, when i remember cholecalciferol (vitamin D3) [Vitamin D3] 25 mcg (1,000 unit) Tablet 25 mcg PO DAILY Patient Comments: time varies, when i remember magnesium 250 mg Tablet 250 mg PO Krames/Other Patient Handouts: DVT Post Op Prevention Admission Data Admit Date/Time: 11/13/23 16:37 Attending Provider: Lukas Main Admit Provider: Lukas Main Primary Care Provider: Jaden Meyers Other Providers: [facility],Home Healthcare; [facility],Referral Center
== END 2023-11-14 12:59 | disposition home health service (06) ==
LOC: ASU 07:10 → 3E 07:10